=== PATIENT | female | born 2000 ===

== ENCOUNTER 2024-09-05 17:27 | Emergency (ER) | payer SELFPAY ==
[2024-09-05 17:29] VITALS: BP 120/79; PULSE 86; RESP 16; TEMP 36.7; O2SAT 99; BMI 38.7
--- NOTE | 2024-09-05 18:18 | EDS_ITS ---
HPI History of Present Illness Chief Complaint: Upper Extremity Injury PFSH PFSH Allergy/AdvReac Type Severity Reaction Status Date / Time ketorolac (From Toradol) Allergy Mild ITCHY Verified 09/05/24 17:28 EXAM Physical Exam Const Vital Signs: 09/05/24 17:29 Temperature 98.0 F Temperature Source Oral Pulse Rate 86 Respiratory Rate 16 Blood Pressure 120/79 Blood Pressure Mean 92 Pulse Ox 99 Oxygen Delivery Method Room Air MDM MDM MDM Narrative Medical decision making narrative: HISTORY OF PRESENT ILLNESS: Chief complaint: Finger injury 24-year-old female presents concern for finger injury. Per triage note: She know she had a splinter in her right index finger. She know she was able to remove it. 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 She presents requesting a work note. REVIEW OF SYSTEMS: Unable to obtain secondary to patient open from the emergency department PHYSICAL EXAM: Unable to obtain secondary to patient open from the emergency department MEDICAL DECISION MAKING: Chief Complaint: please see HPI MDM Narrative: Unable to obtain secondary to patient open from the emergency department Impression: 1. Acute finger pain Dispo: Eloped from the emergency department This note was generated with [employer] dictation software. It may contain incorrect words, spelling, and punctuation that were not noted in review of the chart prior to signing. Discharge Plan Triage Chief Complaint: Upper Extremity Injury ED Provider: Stephen Ford/Rx/DC Orders Clinical Impression: Finger injury Instructions: ED Splinter Removal Stand Alone Forms: ED Work / School Excuse Activity Restrictions/Additional Instructions: Thank you for trusting us with your care today! Please take Tylenol (2 pills, 650 mg), ibuprofen (2 pills, 400 mg) every 6 hours as needed for pain and fever control. Please keep area clean and dry. Please use peroxide Neosporin in the area for first 3 days. Soap and water afterward. Please return to the emergency department if your symptoms change or worsen. Please follow with your primary care physician for further outpatient evaluation and management. Print Language: [place] Disposition Disposition: Home, Self Care
== END 2024-09-05 18:20 | disposition left against medical advice (07) ==
LOC: ED 18:34
DX: M79.644 Pain in right finger(s) (principal)